=== PATIENT | male | born 1980 | race Two or more races ===

== ENCOUNTER 2025-02-07 21:05 | Emergency (ER) | payer MEDICAID ==
[~2025-02-07] VITALS: Ht 180.3 cm; Wt 116.4 kg
[2025-02-07] MEDS: cefTRIAXone SOD 1,000 MG VL IM ONE (01:51)
--- NOTE | 2025-02-07 21:37 | ED.PDOC ---
[place]. trauma (HPI) HPI Comments 44 y/o M, presents to the ED for CC of eye problem. Patient states, that he was playing football on Friday (02/05/25) when, he got hit in the face with the football. Following trauma, patient reports increased pain to his right eye with associated swelling. Patient relays, that he was seen at [facility] and was relayed to the ED to rule out orbital fracture. Patient denies blurred vision, loss of vision, headache, dizziness, nausea, or vomiting. No other symptoms or modifying factors present at this time. Chief Complaint: Eye Problem Time Seen by MD: 21:30 Reviewed notes: Nurses Notes, Medications, Allergies Allergies: Coded Allergies: NO KNOWN ALLERGIES (Unverified , 02/07/25) Information Source: Patient Mode of Arrival: Ambulatory Severity: Moderate Timing: Days Duration: Since onset Prehospital treatment: None Location: Face (right eye) Location of laceration: Face Mechanism: Blunt trauma Associated signs and symtoms: None Past Medical History PAST MEDICAL HISTORY: Denies Surgical History: Denies all surgeries Family History Family History: Unknown Social History Smoker: Non-Smoker Alcohol: Denies ETOH Use Drugs: Denies Drug Use Lives In: Home Constitutional: denies: chills, diaphoresis, fatigue, fever, malaise, sweats, weakness, others EENTM: reports: eye pain; denies: blurred vision, double vision, ear bleeding, ear discharge, ear drainage, ear pain, ear ringing, eye redness, hearing loss, mouth pain, mouth swelling, nasal discharge, nose bleeding, nose congestion, nose pain, photophobia, tearing, throat pain, throat swelling, voice changes, others Respiratory: denies: cough, hemoptysis, orthopnea, SOB at rest, shortness of breath, SOB with excertion, stridor, wheezing, others Cardiovascular: denies: chest pain, dizzy spells, diaphoresis, Dyspnea on exertion, edema, irregular heart beat, left arm pain, lightheadedness, palpit ations, PND, syncope, others Gastrointestinal: denies: abdomen distended, abdominal pain, blood streaked b owels, constipated, diarrhea, dysphagia, difficulty swallowing, hematemesis, melena, nausea, poor appetite, poor fluid intake, rectal bleeding, rectal pain, vomiting, others Genitourinary: denies: burning, dysuria, flank pain, frequency, hematuria, incontinence, penile discharge, penile sore, pain, testicle pain, testicle swelling, urgency, others Neurological: denies: dizziness, fainting, headache, left sided numbness, left sided weakness, numbness, paresthesia, pre-existing deficit, right sided numbness, right sided weakness, seizure, speech problems, tingling, tremors, weakness, others Musculoskeletal: denies: back pain, gout, joint pain, joint swelling, muscle pain, muscle stiffness, neck pain, others Integumetry: denies: bruises, change in color, change in hair/nails, dryness, laceration, lesions, lumps, rash, wounds, others Allergic/Immunocompromised: denies: Difficulty Healing, Frequent Infections, Hives, Itching, others Hematologic/Lymphatic: denies: anemia, blood clots, easy bleeding, easy bruisi ng, swollen glands, others Endocrine: denies: excessive hunger, excessive sweating, excessive thirst, exce ssive urination, flushing, intolerance to cold, intolerance to heat, unexplained weight gain, unexplained weight loss, others Psychiatric: denies: anxiety, bipolar disorder, depression, hopeless, panic disorder, schizophrenia, sleepless, suicidal, others All Other Systems: Reviewed and Negative Physical Exam General Appearance: No Apparent Distress, Normal HEENT: Normal ENT Inspection, Pharynx Normal, Other (right periorbital swelling, tenderness, no crepitus) Neck: Full Range of Motion, Non-Tender, Normal, Normal Inspection Respiratory: Chest Non-Tender, Lungs Clear, No Accessory Muscle Use, No Respiratory Distress, Normal Breath Sounds Cardiovascular: No Edema, No Murmur, No Gallop, Normal Peripheral Pulses, Regular Rate/Rhythm Breast Exam: Deferred Gastrointestinal: No Organomegaly, Non Tender, No Pulsatile Mass, Normal Bowel Sounds, Soft Genitalia: Deferred Pelvic: Deferred Rectal: Deferred Extremities: No calf tenderness, Normal capillary refill, Normal inspection, Normal range of motion, Non-tender, No pedal edema Musculoskeletal : Apperance: Normal Neurologic: Alert, nurse discharge II-XII nml as Tested, No Motor Deficits, Normal Affect, Normal Mood, No Sensory Deficits Cerebellar Function: Normal Reflexes: Normal Skin: Dry, Normal Color, Warm Lymphatic: No Adenopathy Was a procedure done? Was a procedure done?: No Differential Diagnosis Multiple Trauma: Closed Head Injury, Fractures X-Ray, Labs, Meds, VS Vital Signs Date Time Temp Pulse Resp B/P (MAP) Pulse Ox O2 Delivery O2 Flow Rate FiO2 02/07/25 21:15 97.8 79 18 146/95 (112) [address] [address] Ph: [phone] DIAGNOSTIC IMAGING Diagnostic Imaging Report : [id number] Signed PATIENT: DURGA CALVIN JRACCT: [id number] UNIT: [id number] : 1980 LOC: ER ROOM / BED: / AGE / SEX: 44 / M ADM STATUS: REG ER SERVICE 17 ORDERING PHYSICIAN: CHERIE LOWE PROCEDURE(s): FAC2C - MAXILLOFACIAL WITHOUT REASON: facial swelling ORDER NUMBER(s): [id number], ACCESSION NUMBER(s): [id number] HISTORY: facial swelling TECHNIQUE: Nonenhanced axial images through the facial bones with coronal and sagittal MPR. Radiation Dose Information: CT Dose: CTDI volume is 66.95 mGy. Dose-length product is 1531.63 mGy*cm COMPARISON: None FINDINGS: Mandible: Unremarkable Maxilla: Unremarkable Zygomatic arches: Unremarkable Nasal bone: Unremarkable Orbits: Extensive soft tissue swelling and subcutaneous air is seen in the right periorbital region suggestive of severe infectious / inflammatory process. Sinuses: Clear Facial swelling: None IMPRESSION: No acute facial fractures. Extensive soft tissue swelling and subcutaneous air is seen in the right periorbital region suggestive of severe infectious / inflammatory process. Radiation optimization: All CT scans at this facility use at least one of these dose optimization techniques: automated exposure control mA and/or kV adjustment per patient size (includes targeted exams where dose is matched to clinical indication) or iterative reconstruction. ATED BY: MAIK FORBES MD DICTATED DATE/TIME: 02/07/252153 SIGNED BY: MAIK FORBES MD SIGNED DATE/TIME: 02/07/252153 CC: X-Ray, Labs, Meds, VS Comment Maxillofacial CT: IMPRESSION: No acute facial fractures. Extensive soft tissue swelling and subcutaneous air is seen in the right periorbital region suggestive of severe infectious / inflammatory process. Radiation optimization: All CT scans at this facility use at least one of these dose optimization techniques: automated exposure control mA and/or kV adjustment per patient size (includes targeted exams where dose is matched to clinical indication) or iterative reconstruction. Patient will be given Rocephin IM and sent home with Augmentin Recommend follow up in 48 hours for recheck. Time of 1ST Reevaluation: 22:00 Reevaluation 1ST: Unchanged Patient Education/Counseling: Diagnosis, Treatment, Need For Follow Up (Follow up in two days for recheck of the right eye.) Family Education/Counseling: No Family Present Departure 1 Departure Time of Disposition: 22:16 Impression: Primary Impression: Periorbital cellulitis of right eye Additional Impression: Contusion, eye, right Qualified Codes: S05.11XA - Contusion of eyeball and orbital tissues, right eye, initial encounter Disposition: HOME / SELF CARE / HOMELESS Condition: Fair e-Prescriptions Amoxicillin & Pot Clavulanate (AUGMENTIN TABLET) 875 Mg Tb 875 MG PO BID for 7 Days, #14 TAB Prov: CHERIE LOWE 02/07/25 Discharged With: Self Critical Care Note Critical Care Time?: No Stability Stability form required: No Heart Score Heart Score: Heart Score Response (Comments) Value History N/A 0 EKG N/A 0 Age N/A 0 Risk Factors N/A 0 Troponin N/A 0 Total 0 I personally scribed for CHERIE LOWE APARTMENT LEASING MANAGER ([email or web address]) on 02/07/25 at 21:37. Electronically submitted by Amalia Mosher ([email or web address]). I personally scribed for CHERIE LOWE APARTMENT LEASING MANAGER ([email or web address]) on 02/07/25 at 22:06. Electronically submitted by Amalia Mosher ([email or web address]). CHERIE LOWE February 07, 2025 21:37
--- NOTE | 2025-02-07 21:57 | DVH ---
HISTORY: facial swelling TECHNIQUE: Nonenhanced axial images through the facial bones with coronal and sagittal MPR. Radiation Dose Information: CT Dose: CTDI volume is 66.95 mGy. Dose-length product is 1531.63 mGy*cm COMPARISON: None FINDINGS: Mandible: Unremarkable Maxilla: Unremarkable Zygomatic arches: Unremarkable Nasal bone: Unremarkable Orbits: Extensive soft tissue swelling and subcutaneous air is seen in the right periorbital region suggestive of severe infectious / inflammatory process. Sinuses: Clear Facial swelling: None IMPRESSION: No acute facial fractures. Extensive soft tissue swelling and subcutaneous air is seen in the right periorbital region suggestiv e of severe infectious / inflammatory process. Radiation optimization: All CT scans at this facility use at least one of these dose optimization dolly hniques: automated exposure control mA and/or kV adjustment per patient size (includes targeted exam s where dose is matched to clinical indication) or iterative reconstruction.
[2025-02-07] MEDS ORDERED: AUG875T PO (22:17)
[2025-02-08 01:13] VITALS: BP 152/81; PULSE 82; RESP 18; TEMP 99; O2SAT 98
[2025-02-08] MEDS: cefTRIAXone W LIDOCAINE 500 MG IM IM ONE (01:51)
== END 2025-02-08 01:53 | disposition home or self-care (01) ==
LOC: ER 21:17
DX: S00.11XA Contusion of right eyelid and periocular area, initial encounter (principal); L03.213 Periorbital cellulitis; W21.01XA Struck by football, initial encounter; Y93.61 Activity, american tackle football; Y92.89 Other specified places as the place of occurrence of the external cause; Y99.8 Other external cause status
CPT/HCPCS: 70486; 96372; 99285; J0696